=== PATIENT | male | born 2000 | race Caucasian/White ===

== ENCOUNTER 2021-11-24 19:56 | Emergency (ER) | payer OTHER | END 2021-11-24 21:27 | disposition home or self-care (01) | LOC: MW.ED 19:56 | DX: S63.612A Unspecified sprain of right middle finger, initial encounter (principal); S63.614A Unspecified sprain of right ring finger, initial encounter; F17.210 Nicotine dependence, cigarettes, uncomplicated; W22.8XXA Striking against or struck by other objects, initial encounter | CPT/HCPCS: 73140-26-RT; 73140-RT; 99283 ==